=== PATIENT | male | born 1945 | race Caucasian/White ===

== ENCOUNTER 2020-07-24 06:40 | Emergency (ER) | payer MEDICARE, OTHER ==
[~2020-07-24] VITALS: Ht 180.3 cm; Wt 91.2 kg
[~2020-07-24 06:40] MED LIST: HYDRALAZINE HCL10 MG PO; HYDRALAZINE HCL25 MG PO; LOSARTAN-HCTZ1 EAC2 PO
[2020-07-24] MEDS ORDERED: SODIUM CHLORIDE 0.9% 1000ML 1,000 ML IV STA (06:48)
[2020-07-24] MEDS ORDERED: ONDANSETRON HCL INJ 2MG/ML 2ML 2 MG/ML VIAL IV STA (06:48)
[2020-07-24] MEDS ORDERED: SODIUM CHLORIDE 0.9% 1000ML 1,000 ML ONE (06:55)
[2020-07-24 06:57] LABS: BASOPHILS # (AUTO) 0.1 (0.0-0.1); BASOPHILS % 0.8 % (0.0-1.0); EOSINOPHILS # (AUTO) 0.2 (0.0-0.4); EOSINOPHILS % 2.9 % (0.0-6.0); HEMATOCRIT 43.7 % (38.2-49.6); LYMPHOCYTES # (AUTO) 1.7 (1.0-3.2); LYMPHOCYTES % 22.2 % (18.0-39.1); MEAN CORPUSCULAR HEMOGLOBIN 29.1 pg (28-32); MEAN CORPUSCULAR HGB CONC 34.3 g/dL (31-35); MEAN CORPUSCULAR VOLUME 84.7 fL (81-99); MONOCYTES # (AUTO) 0.7 (0.2-0.8); MONOCYTES % 8.8 % (4.4-11.3); PLATELET COUNT 250 x10e3/uL (140-360); RED BLOOD COUNT 5.16 x10e6/uL (4.3-5.7); RED CELL DISTRIBUTION WIDTH 12.4 % (11.7-14.4)
[2020-07-24] MEDS ORDERED: MORPHINE SULFATE INJ 4 MG/ML INJ 1ML IV PRN (07:00)
[2020-07-24] MEDS ORDERED: MECLIZINE HCL 12.5 MG TAB PO ONE ×2 (07:00)
[2020-07-24 07:17] LABS: ALBUMIN 3.6 g/dL (3.5-5.0); ALBUMIN/GLOBULIN RATIO 1.1 (0.8-2.0); ANION GAP 20.1 mmol/L (8-16); CALCIUM 9.1 mg/dL (8.4-10.2); CREATININE, SERUM 1.81 mg/dL (0.72-1.25); POTASSIUM 3.1 mmol/L (3.5-5.1)
--- NOTE | 2020-07-24 07:19 | Emergency Department Note ---
History of Present Illnes History of Present Illness Chief Complaint: Abdominal Complaints History of Present Illness This is a 74 year old male arrives the ED with complaints of dizziness and vomiting. Patient was suffering from vertigo and he felt dizzy and nauseous prior to initiation of this episode.. Onset (how long ago): hour(s) Radiation: Reports non-radiation Severity: mild Onset quality: sudden Duration (how long): day(s) Timing of current episode: constant Progression: worsening Context: Reports recent illness Past Medical/Family History Physician Review I have reviewed the patient's past medical and family history. Any updates have been documented here. Past Medical History Other Surgery: Tonsilectomy at age 8. Social History Smoking Cessation: Never Smoker Counseling Performed: No Other Last Tetanus: UTD Review of Systems Review of Systems Constitutional: Reports as per HPI, Reports weakness EENTM: Reports no symptoms Cardiovascular: Reports no symptoms Respiratory: Reports no symptoms Gastrointestinal: Reports no symptoms Genitourinary: Reports no symptoms Musculoskeletal: Reports no symptoms Integumentary: Reports no symptoms Neurological: Reports as per HPI Psychological: Reports no symptoms Endocrine: Reports no symptoms Hematological/Lymphatic: Reports no symptoms Physical Exam Related Data Allergies: Coded Allergies: No Known Allergies (Unverified , 04/28/14) Vital signs reviewed: Yes Physical Exam CONSTITUTIONAL Constitutional: Present well-developed, Present well-nourished HENT HENT: Present normocephalic, Present atraumatic, Present oropharynx clear/moist, Present nose normal HENT L/R: Present left ext ear normal, Present right ext ear normal EYES Eyes: Reports PERRL, Reports conjunctivae normal NECK Neck: Present ROM normal PULMONARY Pulmonary: Present effort normal, Present breath sounds normal CARDIOVASCULAR Cardiovascular: Present regular rhythm, Present heart sounds normal, Present capillary refill normal, Present normal rate GASTROINTESTINAL Abdominal: Present soft, Present nontender, Present bowel sounds normal GENITOURINARY Genitourinary: Present exam deferred SKIN Skin: Present warm, Present dry MUSCULOSKELETAL Musculoskeletal: Present ROM normal NEUROLOGICAL Neurological: Present alert, Present oriented x 3, Present no gross motor or sensory deficits PSYCHOLOGICAL Psychological: Present mood/affect normal, Present judgement normal Results Laboratory Lab results reviewed: Yes Laboratory comments Laboratory Tests Test 07/24/20 06:45 White Blood Count 7.69 x10e3/uL (4.8-10.8) Red Blood Count 5.16 x10e6/uL (4.3-5.7) Hemoglobin 15.0 g/dL (14.0-18.0) Hematocrit 43.7 % (38.2-49.6) Mean Corpuscular Volume 84.7 fL (81-99) Mean Corpuscular Hemoglobin 29.1 pg (28-32) Mean Corpuscular Hemoglobin Concent 34.3 g/dL (31-35) Red Cell Distribution Width 12.4 % (11.7-14.4) Platelet Count 250 x10e3/uL (140-360) Neutrophils (%) (Auto) 65.0 % (38.7-80.0) Lymphocytes (%) (Auto) 22.2 % (18.0-39.1) Monocytes (%) (Auto) 8.8 % (4.4-11.3) Eosinophils (%) (Auto) 2.9 % (0.0-6.0) Basophils (%) (Auto) 0.8 % (0.0-1.0) Neutrophils # (Auto) 5.0 (2.1-6.9) Lymphocytes # (Auto) 1.7 (1.0-3.2) Monocytes # (Auto) 0.7 (0.2-0.8) Eosinophils # (Auto) 0.2 (0.0-0.4) Basophils # (Auto) 0.1 (0.0-0.1) Absolute Immature Granulocyte (auto 0.02 x10e3/uL (0-0.1) Sodium Level 139 mmol/L (136-145) Potassium Level 3.1 mmol/L (3.5-5.1) Chloride Level 102 mmol/L (98-107) Carbon Dioxide Level 20 mmol/L (22-29) Anion Gap 20.1 mmol/L (8-16) Blood Urea Nitrogen 23 mg/dL (7-26) Creatinine 1.81 mg/dL (0.72-1.25) Estimat Glomerular Filtration Rate 37 ML/MIN (60-) BUN/Creatinine Ratio 13 (6-25) Glucose Level 137 mg/dL (74-118) Calcium Level 9.1 mg/dL (8.4-10.2) Total Bilirubin 0.5 mg/dL (0.2-1.2) Aspartate Amino Transf (AST/SGOT) 18 IU/L (5-34) Alanine Aminotransferase (ALT/SGPT) 7 IU/L (0-55) Alkaline Phosphatase 33 IU/L (40-150) Creatine Kinase 100 IU/L (30-200) Creatine Kinase MB 1.30 ng/mL (0-4.3) Troponin I 0.006 ng/mL (0-0.300) Total Protein 7.0 g/dL (6.5-8.1) Albumin 3.6 g/dL (3.5-5.0) Globulin 3.4 g/dL (2.3-3.5) Albumin/Globulin Ratio 1.1 (0.8-2.0) Lipase 48 U/L (8-78) Imaging Imaging results reviewed: Yes Impressions IMPRESSION: 1. No acute intracranial hemorrhage or cortical infarct. 2. Minimal age-related chronic microvascular ischemic changes. Signed by: Dr. Britany Devi M.D. on 07/24/2020 8:43 AM Procedures 12 Lead ECG Interpretation ECG Interpretation : ECG: ECG 1 [employer] Compensation [employer]er: Interpreted by ED physician Rhythm: sinus rhythm Rate: normal QRS axis: left ST segments normal: Yes T waves normal: Yes Clinical Impression: abnormal ECG Assessment & Plan Medical Decision Making MDM 74-year-old male arrives to the ED with complaints of dizziness and vomiting. Patient states feels like his usual vertigo attack. Patient states he stopped taking his meclizine. Patient with no neuro deficits. Lab work shows mild hypokalemia, patient states he takes supplemental potassium for this. Patient's labwork otherwise unremarkable. CT brain unremarkable. Patient noted marked improvement with meclizine was able to steady gait and discharged home without difficulty. No evidence of an arrhythmia such as Brugada, WPW, HOCM, Long or short QT, significant AV dissociation, or significant bradycardia.? Neurologic exam is nonfocal, not c/w CVA or primary neurologic abnormality. Assessment & Plan Final Impression: (1) Vertigo Depart Disposition: HOME, SELF-snf Meds Active Scripts Ondansetron Hcl* (ZOFRAN*) 4 Mg Tablet, 4 MG SL Q6H PRN for NAUSEA, #14 MG 0 Refills Prov:LEEANN HOFFMAN, 07/24/20 Meclizine Hcl (MECLIZINE HCL) 12.5 Mg Tablet, 25 MG PO DAILY PRN for DIZZINESS, #14 TAB Prov:LEEANN HOFFMAN DO 07/24/20 Reported Medications Losartan/Hydrochlorothiazide (LOSARTAN-HCTZ 100-12.5 MG TAB) 1 Each Tablet, 1 TAB PO DAILY 12/18/16 Medications in the ED Sodium Chloride 1,000 ml @ [facility] ONCE .ROUTE ; Start 07/24/20 at 06:55; Stop 07/24/20 at 06:48; Status DC LEEANN HOFFMAN DO Jul 24, 2020 07:19
[2020-07-24 07:40] LABS: CREATINE KINASE MB 1.3 ng/mL (0-4.3)
--- NOTE | 2020-07-24 08:46 | Diagnostic Imaging Report ---
EXAMINATION: Head CT HISTORY: 74-year-old male with vertigo, vomiting COMPARISON: None. TECHNIQUE: Helical axial images of the head were obtained. Reformatted coronal and sagittal images from the axial data. Dose modulation, iterative reconstruction, and/or weight based adjustment of the mA/kV was utilized to reduce the radiation dose to as low as reasonably achievable. FINDINGS: Parenchyma: 1. A few scattered and periventricular white matter hypodensities, most likely age-related minimal chronic microvascular ischemic changes. Otherwise there are no areas of abnormal density in the brain parenchyma. 2. No mass or hemorrhage. No CT evidence of acute territorial vascular insult. Extra-axial spaces:No abnormal density. No extra-axial fluid collections Brain volume: Normal for age. Ventricles: No hydrocephalus or displacement. Arteries: No density suggestive of thrombus. Dural sinuses: No abnormal density. Foramen magnum: No mass, Chiari malformation, or basilar invagination. Sella: No obvious mass. Paranasal/mastoid sinuses: Imaged portions unremarkable. Skull/Scalp: No lytic or blastic lesions. No fractures. IMPRESSION: 1. No acute intracranial hemorrhage or cortical infarct. 2. Minimal age-related chronic microvascular ischemic changes. Signed by: Dr. Britany Devi M.D. on 07/24/2020 8:43 AM
--- NOTE | 2020-07-24 08:49 | NUR ---
patient ambulated along the ER downing, steady gait noted, pt states that he feels better after taking the Meclizine, Dr. Jeffries notified
[2020-07-24] MEDS ORDERED: MECLIZINE HCL12.5 MG PO (08:58)
[2020-07-24] MEDS ORDERED: ZOFRAN4 MG SL (08:58)
[2020-07-24 09:10] VITALS: BP 136/67
== END 2020-07-24 09:12 | disposition home or self-care (01) ==
LOC: ER 07:19
DX: R42 Dizziness and giddiness (principal); R11.10 Vomiting, unspecified; R94.31 Abnormal electrocardiogram [ECG] [EKG]
CPT/HCPCS: 36415; 70450; 80053; 82550; 82553; 83690; 84484; 85025; 93005; 99284; J2405; J7030; J8597

== ENCOUNTER 2020-12-17 02:51 | Inpatient (IN) | payer MEDICARE ==
[~2020-12-17] VITALS: Ht 180.3 cm; Wt 91.2 kg
[~2020-12-17 02:51] MED LIST changes: +MECLIZINE HCL12.5 MG PO; +ZOFRAN4 MG SL
[2020-12-17 03:41] LABS: BASOPHILS % 0.6 % (0.0-1.0); EOSINOPHILS # (AUTO) 0.2 (0.0-0.4); EOSINOPHILS % 2.9 % (0.0-6.0); HEMATOCRIT 41.5 % (38.2-49.6); HEMOGLOBIN 13.9 g/dL (14.0-18.0); LYMPHOCYTES # (AUTO) 1.3 (1.0-3.2); LYMPHOCYTES % 18.4 % (18.0-39.1); MEAN CORPUSCULAR HEMOGLOBIN 28.7 pg (28-32); MEAN CORPUSCULAR HGB CONC 33.5 g/dL (31-35); MEAN CORPUSCULAR VOLUME 85.7 fL (81-99); MONOCYTES # (AUTO) 0.7 (0.2-0.8); MONOCYTES % 9.6 % (4.4-11.3); NEUTROPHILS # (AUTO) 4.6 (2.1-6.9); NEUTROPHILS % 68.1 % (38.7-80.0); PLATELET COUNT 185 x10e3/uL (140-360); RED BLOOD COUNT 4.84 x10e6/uL (4.3-5.7); RED CELL DISTRIBUTION WIDTH 12.7 % (11.7-14.4)
[2020-12-17 03:46] LABS: INR 0.96; PROTHROMBIN TIME 13.4 seconds (11.9-14.5)
[2020-12-17 03:56] LABS: ALBUMIN 3.5 g/dL (3.5-5.0); ALBUMIN/GLOBULIN RATIO 0.9 (0.8-2.0); ANION GAP 18.1 mmol/L (8-16); CALCIUM 8.3 mg/dL (8.4-10.2); POTASSIUM 3.1 mmol/L (3.5-5.1)
[2020-12-17 04:04] LABS: CREATINE KINASE MB 1.1 ng/mL (0-5.0)
[2020-12-17] MEDS ORDERED: ASPIRIN 81 MG CHEW TAB PO ONE (04:15)
[2020-12-17 04:21] LABS: CREATININE, SERUM 1.7 mg/dL (0.72-1.25)
[2020-12-17 04:34] LABS: CLARITY,URINE CLEAR (CLEAR); COLOR,URINE YELLOW (YELLOW); KETONES,URINE NEGATIVE (NEGATIVE); LEUKOCYTE ESTERASE ,URINE NEGATIVE (NEGATIVE); NITRITE,URINE NEGATIVE (NEGATIVE); PROTEIN,URINE DIPSTICK NEGATIVE (NEGATIVE)
[2020-12-17 04:35] LABS: BACTERIA,URINE FEW /HPF; EPITHELIAL CELLS,URINE FEW /LPF; URINE UROBILINOGEN 0.2 mg/dL (0.2 - 1); WBC,URINE (MAN) 0-5 /HPF (0-5)
[2020-12-17] MEDS ORDERED: POTASSIUM CHLORIDE 20 MEQ TAB CR PO STA (04:56)
[2020-12-17] MEDS ORDERED: LACTATED RINGER'S 1,000 ML INJ ONE (05:00)
[2020-12-17] MEDS ORDERED: POTASSIUM CHLORIDE 20 MEQ TAB CR PO ONE (05:10)
[2020-12-17 10:11] LABS: CREATINE KINASE MB 1.2 ng/mL (0-5.0)
== END 2020-12-17 15:16 | disposition home or self-care (01) | DRG 308 ==
LOC: ER 03:11 → ERHOLD 05:41
PROVIDERS: ADMIT Internal Medicine; ATTEND Internal Medicine
DX: R00.1 Bradycardia, unspecified (principal); U07.1 COVID-19; I12.9 Hypertensive chronic kidney disease with stage 1 through stage 4 chronic kidney disease, or unspecified chronic kidney disease; N18.30 Chronic kidney disease, stage 3 unspecified; A08.4 Viral intestinal infection, unspecified
CPT/HCPCS: 36415; 71045; 80053; 81001; 82550; 82553; 83690; 84484; 85025; 85610; 85730; 93005; 93306; 99284; J7121; U0002

== ENCOUNTER 2022-01-03 13:45 | Emergency (ER) | payer MEDICARE, OTHER ==
[~2022-01-03] VITALS: Ht 180.3 cm; Wt 91.2 kg
== END 2022-01-03 14:44 | disposition home or self-care (01) ==
LOC: ER 13:57
DX: R42 Dizziness and giddiness (principal); I10 Essential (primary) hypertension; R94.31 Abnormal electrocardiogram [ECG] [EKG]; Z86.711 Personal history of pulmonary embolism
CPT/HCPCS: 93005; 99283